=== PATIENT | male | born 1995 | race Two or more races ===

== ENCOUNTER 2018-06-27 13:52 | Outpatient (CLI) | payer OTHER | END 2018-06-27 14:11 | disposition home or self-care (01) | LOC: RAD 13:52 | DX: M25.571 Pain in right ankle and joints of right foot (principal) ==

== ENCOUNTER → 2020-11-23 13:19 | Outpatient (CLI) | payer OTHER | END | disposition home or self-care (01) | LOC: LAB 13:19 | PROVIDERS: ATTEND Emergency Medicine Pediatric Emergency Medicine | DX: Z03.818 Encounter for observation for suspected exposure to other biological agents ruled out (principal) ==

== ENCOUNTER 2020-11-30 09:33 | Outpatient (CLI) | payer OTHER | END 2020-11-30 14:49 | disposition home or self-care (01) | LOC: LAB 09:33 | DX: Z03.818 Encounter for observation for suspected exposure to other biological agents ruled out (principal) ==

== ENCOUNTER 2020-12-01 08:22 | Outpatient (CLI) | payer OTHER | END 2020-12-01 15:00 | disposition home or self-care (01) | LOC: LAB 08:22 | DX: U07.1 COVID-19 (principal) ==